=== PATIENT | female | born 1980 | race American Indian/Alaskan Native ===

== ENCOUNTER 2019-08-21 20:02 | Emergency (ER) | payer OTHER ==
[~2019-08-21] VITALS: Ht 162.6 cm; Wt 79.4 kg
[~2019-08-21 20:02] MED LIST: ROBAXIN-750750 MG PO; VALIUM5 MG PO; ZOFRAN ODT4 MG SL
[2019-08-21] MEDS ORDERED: ZITHROMAX250 MG PO (20:41)
[2019-08-21] MEDS ORDERED: PROVENTIL HFA6.7 GM INH (20:48)
== END 2019-08-21 20:52 | disposition home or self-care (01) ==
LOC: ED 20:02
DX: J20.9 Acute bronchitis, unspecified (principal)
CPT/HCPCS: 71046; 99283-25

== ENCOUNTER 2021-08-28 17:42 | Emergency (ER) | payer BC, OTHER ==
[~2021-08-28] VITALS: Ht 162.6 cm; Wt 95.4 kg
[~2021-08-28 17:42] MED LIST changes: +PROVENTIL HFA6.7 GM INH; +ZITHROMAX250 MG PO
[2021-08-28] MEDS ORDERED: DAY TIME COLD-296 ML PO (18:06)
[2021-08-28] MEDS ORDERED: MUCINEX FAST-M1 EAC9 PO (18:06)
[2021-08-28] MEDS ORDERED: ADVIL200 MG PO (18:07)
[2021-08-28] MEDS ORDERED: VENTOLIN HFA18 GM INH (18:31)
== END 2021-08-28 19:13 | disposition home or self-care (01) ==
LOC: ED 17:42
DX: U07.1 COVID-19 (principal); Z79.899 Other long term (current) drug therapy
CPT/HCPCS: 94640; 99284

== ENCOUNTER 2022-02-23 16:42 | Emergency (ER) | payer BC, OTHER ==
[~2022-02-23] VITALS: Ht 162.6 cm; Wt 95.2 kg
[~2022-02-23 16:42] MED LIST changes: +ADVIL200 MG PO; +DAY TIME COLD-296 ML PO; +MUCINEX FAST-M1 EAC9 PO; +VENTOLIN HFA18 GM INH
[2022-02-23] MEDS ORDERED: LEVOFLOXACIN500 MG PO (21:01)
[2022-02-23] MEDS ORDERED: HYDROCODON-ACE1 EA10 PO (21:01)
[2022-02-23] MEDS ORDERED: PROTONIX40 MG PO (21:01)
== END 2022-02-23 21:23 | disposition home or self-care (01) ==
LOC: ED 16:42
DX: K44.9 Diaphragmatic hernia without obstruction or gangrene (principal); J18.9 Pneumonia, unspecified organism
CPT/HCPCS: 36415; 74177; 80053; 81001; 83690; 84703; 85025; 96375; 96376; 99284-25; A9270; J2270; J2405; J7030

== ENCOUNTER → 2022-06-23 | Day surgery (SDC) | payer BC, OTHER ==
[~2022-06-23] VITALS: Ht 162.6 cm; Wt 87.0 kg
[~2022-06-23] MED LIST changes: +HYDROCODON-ACE1 EA10 PO; +LEVOFLOXACIN500 MG PO; +PROTONIX40 MG PO
--- NOTE | 2022-06-23 13:36 | NUR ---
1320 c/o wait states shes leaving. had o.r. charge come in to talk to pt. informed dr buckley. 1330 adamant she is leaving. pt pulled wrist band off. yelled get this iv out or ill pull it ou. iv was dcd by this rn. pt saying f this f that. pt dressed and walked briskly out of dept.
== END ==
LOC: OPS 10:57 → DS 10:57 → OPS 11:00 → DS 11:00 → OPS 12:00 → DS 12:00
PROVIDERS: ATTEND Surgery
DX: R10.12 Left upper quadrant pain (principal); Z53.20 Procedure and treatment not carried out because of patient's decision for unspecified reasons
CPT/HCPCS: J7121

== ENCOUNTER 2024-05-30 12:36 | Emergency (ER) | payer OTHER, BC ==
[~2024-05-30] VITALS: Ht 162.6 cm; Wt 84.4 kg
[2024-05-30] MEDS ORDERED: IBUPROFEN 600 MG TAB PO ONE (13:15)
[2024-05-30] MEDS ORDERED: ACETAMINOPHEN 500 MG TAB PO ONE (13:15)
[2024-05-30 13:40] VITALS: BP 118/73
== END 2024-05-30 13:42 | disposition home or self-care (01) ==
LOC: ED 12:36
DX: S49.91XA Unspecified injury of right shoulder and upper arm, initial encounter (principal); W01.0XXA Fall on same level from slipping, tripping and stumbling without subsequent striking against object, initial encounter
CPT/HCPCS: 73030; 99283; A9270